=== PATIENT | male | born 1955 | race Caucasian/White ===

== ENCOUNTER 2020-08-24 13:56 | Emergency (ER) | payer OTHER ==
[~2020-08-24] VITALS: Ht 190.5 cm; Wt 81.6 kg
[2020-08-24 14:06] VITALS: BP 157/80
[2020-08-24] MEDS ORDERED: ONDANSETRON 4 MG/2 ML VIAL IVP ONE (15:05)
[2020-08-24] MEDS ORDERED: HYDROmorphone PFS 2 MG/ML SYR IVP ONE (15:05)
[2020-08-24] MEDS ORDERED: LACTATED RINGERS 1,000 ML IV ONE ×2 (15:05→16:05)
[2020-08-24 15:40] LABS: BASOPHILS # (AUTO) 0.1 K/uL (0.00-0.22); BASOPHILS % (AUTO) 0.7 % (0.0-2.0); EOSINOPHILS # (AUTO) 0.1 K/uL (0-0.4); EOSINOPHILS % (AUTO) 0.5 % (0.0-4.0); HEMATOCRIT 47.8 % (36-52); HEMOGLOBIN 16.1 g/dL (12.0-18.0); LYMPHOCYTES # (AUTO) 2.3 K/uL (2.0-11.5); LYMPHOCYTES % (AUTO) 12.9 % (20.5-51.1); MEAN CORPUSCULAR HEMOGLOBIN 31 pg (27-31); MEAN CORPUSCULAR HGB CONC 34 g/dL (33-37); MEAN CORPUSCULAR VOLUME 90.9 fL (80-94); MONOCYTES # (AUTO) 1.2 K/uL (0.8-1.0); MONOCYTES % (AUTO) 6.8 % (1.7-9.3); NEUTROPHILS % (AUTO) 79.1 % (42.2-75.2); PLATELET COUNT (AUTO) 258 K/uL (140-450); RED BLOOD CELL COUNT(AUTO) 5.26 MIL/uL (4.20-6.10); RED CELL DISTRIBUTION WIDTH 13.9 % (11.6-13.7); WHITE BLOOD COUNT (AUTO) 17.7 K/uL (4.8-10.8)
[2020-08-24 16:03] LABS: ALBUMIN 5.1 g/dL (3.4-5.0); CARBON DIOXIDE 24.3 mmol/L (21-32); CREATININE 1.1 mg/dL (0.6-1.3); POTASSIUM 3.3 mmol/L (3.5-5.1); TOTAL BILIRUBIN 0.9 mg/dL (0.0-1.0)
[2020-08-24] MEDS ORDERED: POTASSIUM CHL 40 MEQ/ D5-1/2NS 1,000 ML IV ONE (17:00)
[2020-08-24] MEDS ORDERED: ONDANSETRON 4 MG ODT PO ONE (20:45)
[2020-08-24] MEDS ORDERED: HYDROcodone/APAP 5/325 MG 1 TAB TAB PO ONE (20:45)
[2020-08-24] MEDS ORDERED: MORPHINE SULFATE 4 MG/ML SYR IM ONE (23:00)
--- NOTE | 2020-08-24 23:30 | NUR ---
MEDICATED PER [facility] ORDER, TOLERATED WELL.
--- NOTE | 2020-08-25 00:30 | NUR ---
ALL RESULTS BACK AND NOTED BY ERMD AND FOR D/C
[2020-08-25] MEDS ORDERED: ONDANSETRON 4 MG ODT PO ONE ×2 (00:45→02:45)
[2020-08-25] MEDS ORDERED: MORPHINE SULFATE 4 MG/ML SYR IM ONE ×2 (00:45→02:45)
[2020-08-25 03:00] VITALS: BP 119/79
--- NOTE | 2020-08-25 03:00 | NUR ---
Patient discharged with v/s stable. Written and verbal after care instructions given and explained. Patient alert, oriented and verbalized understanding of instructions. Ambulatory with to car. All questions addressed prior to discharge. ID band removed. Patient advised to follow up with PMD. Rx of NORCO, MOTRIN, NARCAN given. Patient educated on indication of medication including possible reaction and side effects. Opportunity to ask questions provided and answered.
== END 2020-08-25 03:00 | disposition home or self-care (01) ==
LOC: MED 13:56
DX: R10.13 Epigastric pain (principal); R74.8 Abnormal levels of other serum enzymes; E87.6 Hypokalemia; J44.9 Chronic obstructive pulmonary disease, unspecified; F17.200 Nicotine dependence, unspecified, uncomplicated
CPT/HCPCS: 36415; 74176; 80053; 83690; 84484; 85025; 93005; 96372; 99285; J2270; Q0162

== ENCOUNTER 2022-02-02 16:21 | Emergency (ER) | payer OTHER ==
[~2022-02-02] VITALS: Ht 190.5 cm; Wt 77.1 kg
[2022-02-02 16:23] VITALS: BP 133/90
--- NOTE | 2022-02-02 16:37 | NUR ---
66 Y/O MALE BIBA C/O SEVERE ABDOMINAL PAIN AND NAUSEA X TODAY. PT HAS A HX OF PANCREATITIS. PT DENIES CHEST PAIN, SOB. PT DENIES FEVER OR CHILLS. PMH:PANCREATITIS MEDS: VALIUM, ZOFRAN, NORCO ALLERGIES:PENICILLIN
[2022-02-02 17:24] LABS: BASOPHILS % (AUTO) 0.4 % (0.0-2.0); EOSINOPHILS # (AUTO) 0.1 K/uL (0-0.4); EOSINOPHILS % (AUTO) 0.8 % (0.0-4.0); HEMATOCRIT 49.8 % (36-52); HEMOGLOBIN 16.3 g/dL (12.0-18.0); LYMPHOCYTES # (AUTO) 1.7 K/uL (2.0-11.5); LYMPHOCYTES % (AUTO) 11.8 % (20.5-51.1); MEAN CORPUSCULAR HEMOGLOBIN 29 pg (27-31); MEAN CORPUSCULAR HGB CONC 33 g/dL (33-37); MEAN CORPUSCULAR VOLUME 88.2 fL (80-94); MONOCYTES # (AUTO) 0.7 K/uL (0.8-1.0); MONOCYTES % (AUTO) 5.3 % (1.7-9.3); NEUTROPHILS # (AUTO) 11.6 K/uL (1.8-7.7); NEUTROPHILS % (AUTO) 81.7 % (42.2-75.2); PLATELET COUNT (AUTO) 308 K/uL (140-450); RED BLOOD CELL COUNT(AUTO) 5.64 MIL/uL (4.20-6.10); RED CELL DISTRIBUTION WIDTH 13.4 % (11.6-13.7); WHITE BLOOD COUNT (AUTO) 14.1 K/uL (4.8-10.8)
[2022-02-02 17:45] LABS: ALBUMIN 4.8 g/dL (3.4-5.0); ANION GAP 17.7 (8-16); CREATININE 1.1 mg/dL (0.6-1.3); POTASSIUM 3.7 mmol/L (3.5-5.1); TOTAL BILIRUBIN 0.7 mg/dL (0.0-1.0)
[2022-02-02] MEDS ORDERED: METOCLOPRAMIDE 10 MG/2 ML INJ VIAL IVP ONE (18:10)
[2022-02-02] MEDS ORDERED: diphenhydrAMINE 50 MG/ML VIAL IVP ONE (18:10)
[2022-02-02] MEDS ORDERED: MORPHINE SULFATE 4 MG/ML SYR IVP ONE (18:10)
--- NOTE | 2022-02-02 19:19 | NUR ---
Pt report given to MITCH GARZA. Transfer of care at this time.
[2022-02-02] MEDS ORDERED: MORPHINE SULFATE 5 MG/ML VIAL IVP ONE (19:30)
--- NOTE | 2022-02-02 19:30 | NUR ---
C/O PAIN RATED 10/10. PT STATES "I WANT DILAUDID, I HAVE A HIGH TOLERANCE TO PAIN MEDICATION"
[2022-02-02] MEDS ORDERED: MORPHINE SULFATE 10 MG/ML VIAL ONE (19:35)
[2022-02-02 20:30] VITALS: BP 153/96
--- NOTE | 2022-02-02 20:30 | NUR ---
Patient discharged with v/s stable. Written and verbal after care instructions given and explained. Patient verbalized understanding. Ambulatory with steady gait. All questions addressed prior to discharge. Advised to follow up with PMD.
== END 2022-02-02 20:30 | disposition home or self-care (01) ==
LOC: MED 16:21
DX: R10.13 Epigastric pain (principal); R11.2 Nausea with vomiting, unspecified; J44.9 Chronic obstructive pulmonary disease, unspecified; Z88.0 Allergy status to penicillin
CPT/HCPCS: 36415; 80053; 83690; 85025; 96374; 96375; 96376; 99284; J1200; J2270; J2765